=== PATIENT | female | born 1965 | race Caucasian/White ===

== ENCOUNTER 2019-12-10 18:32 | Emergency (ER) | payer OTHER ==
--- OUTSIDE RECORDS SUMMARY | 2019-12-10 18:36 | XMS REPORT ---
:1965 [facility] Address [address] [place] [address] Care Team Providers Name Role Phone DR DEA MALLOY Unavailable Unavailable SAM, DR GARCIA Unavailable Unavailable DR TOMASA GRANT Unavailable Unavailable ERIC, DR RIVERA Unavailable Unavailable POTEPKRISTINV, DR NIKO Navarro Unavailable Unavailable BROOKE SANCHEZ Unavailable Unavailable MCCLELLAND, DR MOUNIKA Brennan Unavailable Unavailable ZIWORITIN, DR BARBER Unavailable Unavailable Problems This patient has no known problems. Allergies, Adverse Reactions, Alerts This patient has no known allergies or adverse reactions. Medications This patient has no known medications. Encounters Start End Encounter Admission Attending Care Care Encounter Date/Time Date/Time Type Type Clinicians Facility Department ID 2019-10-18 2019-10-18 Outpatient E DE[facility]ALL[facility] [id number] 21:14:00 23:25:00 2019-08-22 2019-08-22 Outpatient RADHA MCLEOD [facility] [id number] 10:14:00 23:59:00 2019-07-08 2019-07-08 Outpatient E SHEIKH [facility] [id number] 08:48:00 11:10:00 WASIM 2019-04-09 2019-04-09 Outpatient E NICOLE REYES [facility] [id number] 19:17:00 20:00:00 2019-04-08 2019-04-08 Outpatient E SHEIKH [facility] [id number] 16:44:00 17:30:00 WASIM 2018-12-17 2018-12-17 Outpatient E OMAR [facility] [id number] 00:46:00 02:20:00 NIKO 2018-11-16 2018-11-16 Outpatient E DEA MALLOY [facility] [id number] 07:30:00 10:00:00 2018-06-25 2018-06-25 Outpatient E DEA MALLOY [facility] [id number] 06:57:00 08:55:00 2018-06-20 2018-06-20 Emergency E [facility] [id number] 09:14:00 09:14:00 2018-06-14 2018-06-14 Outpatient E DANIEL [facility] [id number] 08:57:00 09:47:00 BROOKE 2018-04-18 2018-04-18 Outpatient E MOUNIKA MCCLELLAND [facility] [id number] 20:15:00 22:50:00 2018-04-18 2018-04-18 Outpatient E MOUNIKA MCCLELLAND [facility] [id number] 20:15:00 22:50:00 2014-10-19 2014-10-19 Outpatient C NATY [facility] [id number] 15:15:00 15:15:00 ELISABETH Results Test Description Test Time Test Comments Text Results Atomic Results Result Comments URINALYSIS W/O MICROSCOPICOW 2019-10-18 23:04:00 Test Item Value Reference Range Comments COLOR (test code=COLU) PALE YELLOW YELLOW CLARITY (test code=CLA) SLT HAZY CLEAR GLUCOSE UR (test code=UA GLUCOSE) 2+ NEGATIVE BILI UR (test code=BILE) Negative NEGATIVE KETONES UR (test code=SUHAIL) Negative NEGATIVE SP GRAVITY (test code=SPGR) 1.015 1.005-1.030 PH UR (test code=PH) 5.0 4.5-8.0 PROTEIN UR (test code=PU) Negative NEGATIVE NITRITE UR (test code=NITRITE) Negative NEGATIVE UROBIL UR (test code=GUROQ) 0.2 E.U./dL UROBIL UR (test code=GUROQC) UROBILINOGEN REFERENCE RANGE 0.2 - 1.0 EU/dL BLOOD UR (test code=UA BLOOD) Trace-lysed NEGATIVE LEUK ES UR (test code=LEUK) Negative NEGATIVE CT HEAD W/O CONTRAST *OW*2019-10-18 22:39:22CT SCAN OF THE HEAD WITHOUT CONTRASTDictation Location: [id number] HISTORY: SeizureCOMPARISON: TECHNIQUE: Helical CT was performed from the skull base to the vertex withoutIV contrast using 5mm slice thicknesses. Exam was performed within 24 hours ofthe patient's arrival to the facility. The lack of IV contrast limitsevaluation for inflammation or mass. 2-D coronal and sagittal images werereconstructed. This exam was performed according to our departmental dose -optimizationprogram,which includes automatic exposure control, adjustment of mA and/or kVaccording to patient size and/or use of iterative reconstruction technique.DLP: 1046 mGY*cmComparison study 12/17/18FINDINGS:There is a 1.5 cm mucous retention cyst in the right maxillary sinus. Remainderthe visualized sinuses areclear. There is no evidence of skull fracture. Thevisualized bony structures are normal. There is noevidence of epidural,subdural, or intraparenchymal hematoma. There is no evidence of mass,mass effect, fluid collection,hemorrhage, or evolving infarction. IMPRESSION:Normal CT of the head without contrast.TROPONIN I OW2019-10-18 21:45:00 Test Item Value Reference Range Comments TROPONIN I (test code=A84) <0.050 ng/mL 0.000-0.050 MetyLyte 8 Panel *OW* [id number] 21:39:00 Test Item Value Reference Range Comments GLUCOSE (test code=GGUL) 375 mg/dL 73-118 BUN (test code=GBUN) 13 mg/dL 7-22 CREATININE (test code=GCRE) 0.6 mg/dL 0.6-1.2 CK TOTAL (test code=GCK) 78 U/L 30-190 SODIUM (test code=GNA+) 143 mmol/L 128-145 POTASSIUM (test code=GK+) 4.1 mmol/L 3.6-5.1 CHLORIDE (test code=GCL-) 107 mmol/L 98-108 TCO2 (test code=GTC02) 27 mmol/L 18-33 GLUCOMETER GLUCOSE- LAB USE [id number] 21:33:00 Test Item Value Reference Range Comments GLUCOMETER (test code=GMG) 384 mg/dL 70-100 Meter ID: [id number]: [id number] DID[address] FRANKLIN CBC (INCLUDES AUTOMATED DIFFERENTIAL) *2019-10-18 21:31:00 Test Item Value Reference Range Comments WBC (test code=WBC) 8.7 10\S\3/uL 4.5-11.0 RBC (test code=RBC) 5.62 10\S\6/uL 4.20-5.60 HGB (test code=HBG) 14.2 g/dL 12.0-15.5 HCT (test code=HCT) 46.1 % 35.0-44.0 MCV (test code=MCV) 82.1 fL 81.0-99.0 MCH (test code=MCH) 25.3 pg 27.0-31.0 MCHC (test code=MCHC) 30.8 g/dL 32.0-36.0 RDW (test code=RDW) 15.3 % 11.5-14.5 PLT (test code=PLT) 316 10\S\3/uL 130-400 MPV (test code=OMPV) 7.7 fL 6.2-10.2 NEUTROP # (test code=NE#) 5.0 10\S\3/uL 1.6-8.0 LYMPH # (test code=LY#) 3.2 10\S\3/uL 1.1-3.5 MID # (test code=GMID#) 0.5 10\S\3/uL 0.0-1.1 GRA % (test code=GRA%) 57.2 % 35.0-73.0 LYMPH % (test code=GLY%) 36.5 % 20.0-55.0 MID % (test code=GMID%) 6.3 % 0.0-10.0 XR SPINE THORACIC W/SWIMMERS 3VW *OW*2019-08-22 11:03:55Thoracic spine, 3 viewsLocation Code: [id number] history: Pain with scoliosisComments: AP, lateral , and swimmer lateral views of the thoracic spine wereobtained. There is no acute fracture or malalignment. Mild diffuse spondylosiswith 4.9 degrees of dextroscoliosis centering at T8 with accentuation of thethoracic kyphosis. The paraspinal soft tissues are unremarkable.Impression: No acute abnormality. Mild spondylosis with mild dextroscoliosisand accentuation of the thoracic kyphosis.TROPONIN I i-STAT OW2019-07-08 10:41:00 Test Item Value Reference Range Comments TROPONIN I (test code=A84) 0.000 ng/mL 0.000-0.045 CHEM8+ i-STAT OW2019-07-08 10:31:00 Test Item Value Reference Range Comments SODIUM (test code=DEMARIO) 136 mmol/L 138-146 POTASSIUM (test code=KI) 4.1 mmol/L 3.5-4.9 CHLORIDE (test code=CLI) 101 mmol/L 98-109 CA IONIZED (test code=ICAI) 1.31 mmol/L 1.12-1.32 GLUCOSE (test code=GLUI) 297 mg/dL 75-100 TCO2 (test code=TCO2) 27 mmol/L 24-29 BUN (test code=BUN1) 16 mg/dL 8-26 CREATININE (test code=CREAI) 0.5 mg/dL 0.6-1.3 ANION GAP (test code=GANG) 13.0 mmol/L HGB (test code=MHB) 14.3 g/dL 12.0-17.0 HCT (test code=MHCT) 42.0 % 38.0-51.0 CBC (INCLUDES AUTOMATED DIFFERENTIAL) *2019-07-08 10:22:00 Test Item Value Reference Range Comments WBC (test code=WBC) 9.6 10\S\3/uL 4.5-11.0 RBC (test code=RBC) 5.05 10\S\6/uL 4.20-5.60 HGB (test code=HBG) 13.3 g/dL 12.0-15.5 HCT (test code=HCT) 41.1 % 35.0-44.0 MCV (test code=MCV) 81.4 fL 81.0-99.0 MCH (test code=MCH) 26.3 pg 27.0-31.0 MCHC (test code=MCHC) 32.4 g/dL 32.0-36.0 RDW (test code=RDW) 15.2 % 11.5-14.5 PLT (test code=PLT) 255 10\S\3/uL 130-400 MPV (test code=OMPV) 7.6 fL 6.2-10.2 NEUTROP # (test code=NE#) 5.7 10\S\3/uL 1.6-8.0 LYMPH # (test code=LY#) 3.1 10\S\3/uL 1.1-3.5 MID # (test code=GMID#) 0.9 10\S\3/uL 0.0-1.1 GRA % (test code=GRA%) 58.9 % 35.0-73.0 LYMPH % (test code=GLY%) 32.1 % 20.0-55.0 MID % (test code=GMID%) 9.0 % 0.0-10.0 URINALYSIS W/O MICROSCOPICOW2019-07-08 10:09:00 Test Item Value Reference Range Comments COLOR (test code=COLU) PALE YELLOW YELLOW CLARITY (test code=CLA) Clear CLEAR GLUCOSE UR (test code=UA 3+ NEGATIVE GLUCOSE) BILI UR (test code=BILE) Negative NEGATIVE KETONES UR (test code=SUHAIL) Negative NEGATIVE SP GRAVITY (test code=SPGR) 1.020 1.005-1.030 PH UR (test code=PH) 5.5 4.5-8.0 PROTEIN UR (test code=PU) 1+ NEGATIVE NITRITE UR (test Negative NEGATIVE code=NITRITE) UROBIL UR (test code=GUROQ) 0.2 E.U./dL UROBIL UR (test code=GUROQC) UROBILINOGEN REFERENCE RANGE 0.2 - 1.0 EU/dL BLOOD UR (test code=UA Negative NEGATIVE BLOOD) LEUK ES UR (test code=LEUK) Negative NEGATIVE PROTHROMBIN TIME i-STAT OW2018-12-17 02:05:00 Test Item Value Reference Range Comments PT (test code=PT1) 11.9 s 10.0-13.0 INR (test code=INR) 1.0 INRH (test code=INRH) SUGGESTED THERAPEUTIC RANGE FOR INR: 2.5 - 3.5 For Patients with Prosthetic Valves or Patients with recurrent Thromboembolic Events 2.0 - 3.0 For Most Other Applications LACTIC ACID OW2018-12-17 02:04:00 Test Item Value Reference Range Comments LACTATE (test code=ETHAN) 1.6 mmol/L 0.9-1.7 DRUGS OF ABUSE*OW*2018-12-17 01:49:00 Test Item Value Reference Range Comments DRUG SCRN (test code=HDOA) URINE DRUG SCREEN This is an unconfirmed screening result and should not be used for non-medical purposes PHENCYCLID (test code=GPCP) Negative NEGATIVE BENZODIAZE (test code=GBZO) Positive NEGATIVE COCAINE (test code=GCOC) Negative NEGATIVE AMPHETAMIN (test code=GAMP) Negative NEGATIVE THC (test code=GTHC) Negative NEGATIVE OPIATES (test code=SARAY) Negative NEGATIVE BARBITURAT (test code=GBAR) Negative NEGATIVE TCA (test code=GTCA) Negative NEGATIVE DOAH (test code=DOAH) URINE DRUG SCREEN CUT OFF VALUES Amphetamines 1000 ng/mL Barbituates 300 ng/mL Benzodiazepines 300 ng/mL Cocaine 300 ng/mL Opiates 300 ng/mL Phencyclidine 25 ng/mL THC 50 ng/mL Tricyclic Antidepressants 1000 ng/mL URINALYSIS W/O MICROSCOPICOW2018-12-17 01:40:00 Test Item Value Reference Range Comments COLOR (test code=COLU) Yellow YELLOW CLARITY (test code=CLA) Clear CLEAR GLUCOSE UR (test code=UA 3+ NEGATIVE GLUCOSE) BILI UR (test code=BILE) Negative NEGATIVE KETONES UR (test code=SUHAIL) Negative NEGATIVE SP GRAVITY (test code=SPGR) 1.015 1.005-1.030 PH UR (test code=PH) 6.0 4.5-8.0 PROTEIN UR (test code=PU) 1+ NEGATIVE NITRITE UR (test Negative NEGATIVE code=NITRITE) UROBIL UR (test code=GUROQ) 0.2 E.U./dL UROBIL UR (test code=GUROQC) UROBILINOGEN REFERENCE RANGE 0.2 - 1.0 EU/dL BLOOD UR (test code=UA Negative NEGATIVE BLOOD) LEUK ES UR (test code=LEUK) Negative NEGATIVE URINE OW2018-12-17 01:40:00 Test Item Value Reference Range Comments PREG UR (test code=PGU) Negative NEGATIVE BRAIN NATRIURETIC PROTEIN OW2018-12-17 01:39:00 Test Item Value Reference Range Comments BNP (test code=OBNP) <15 pg/mL 0-50 CT HEAD W/O CONTRAST *OW*2018-12-17 01:21:06AFTER HOURS SERVICE ON: 12/17/2018 1: 19 AMCT Scan of the Brain Without ContrastLocation Code N76Slfmaid: [id number]: Epilepsy, not refractoryTechnique: Scans were performed on a helical scanner pre IV contrast only. Thestudy is limited secondary to lack of intravenous contrast, particularly forevaluation of masses. One or more of the following dose reduction techniques were used: Automatedexposure control, adjustment of the mA and/or kV according to patient size,and/or utilization of iterative reconstruction technique.Findings: There is no hydrocephalus. Basal cisterns are patent. There is no intracranialhyperdense hemorrhage. There is no midline shift or mass effect. No effacementof the do-whitematter junction to indicate acute infarction. There is noskull fracture.Impression:No acute intracranial CT findings.TROPONIN I i-STAT OW2018-12-17 01:16:00 Test Item Value Reference Range Comments TROPONIN I (test code=A84) 0.000 ng/mL 0.000-0.045 CHEM8+ i-STAT OW2018-12-17 01:05:00 Test Item Value Reference Range Comments SODIUM (test code=DEMARIO) 137 mmol/L 138-146 POTASSIUM (test code=KI) 4.1 mmol/L 3.5-4.9 CHLORIDE (test code=CLI) 101 mmol/L 98-109 CA IONIZED (test code=ICAI) 1.29 mmol/L 1.12-1.32 GLUCOSE (test code=GLUI) 365 mg/dL 75-100 TCO2 (test code=TCO2) 26 mmol/L 24-29 BUN (test code=BUN1) 18 mg/dL 8-26 CREATININE (test code=CREAI) 0.7 mg/dL 0.6-1.3 ANION GAP (test code=GANG) 15.0 mmol/L HGB (test code=MHB) 12.6 g/dL 12.0-17.0 HCT (test code=MHCT) 37.0 % 38.0-51.0 CBC (INCLUDES AUTOMATED DIFFERENTIAL) *2018-12-17 01:04:00 Test Item Value Reference Range Comments WBC (test code=WBC) 8.5 10\S\3/uL 4.5-11.0 RBC (test code=RBC) 4.62 10\S\6/uL 4.20-5.60 HGB (test code=HBG) 13.0 g/dL 12.0-15.5 HCT (test code=HCT) 37.1 % 35.0-44.0 MCV (test code=MCV) 80.2 fL 81.0-99.0 MCH (test code=MCH) 28.1 pg 27.0-31.0 MCHC (test code=MCHC) 35.0 g/dL 32.0-36.0 RDW (test code=RDW) 15.5 % 11.5-14.5 PLT (test code=PLT) 299 10\S\3/uL 130-400 MPV (test code=OMPV) 7.7 fL 6.2-10.2 NEUTROP # (test code=NE#) 4.9 10\S\3/uL 1.6-8.0 LYMPH # (test code=LY#) 2.9 10\S\3/uL 1.1-3.5 MID # (test code=GMID#) 0.6 10\S\3/uL 0.0-1.1 GRA % (test code=GRA%) 58.2 % 35.0-73.0 LYMPH % (test code=GLY%) 34.5 % 20.0-55.0 MID % (test code=GMID%) 7.3 % 0.0-10.0 GLUCOMETER GLUCOSE- LAB USE [id number] 09:29:00 Test Item Value Reference Range Comments GLUCOMETER (test code=GMG) 319 mg/dL 70-100 Meter ID: [id number]: [id number] ABDOMEN AND PELVIS WITH CONTRAST *OW*2018-11-16 08:54:22CT abdomen and pelvis with contrastLocation Code: [id number] HISTORY: [id number]: Abdominal painCOMPARISON: NoneTechnique: Helical CT of the abdomen and pelvis was performed followingintravenous contrast. Thin section axial, sagittal and coronal images wereobtained. One or more of the following dose reduction techniques were used:Automated exposure control, adjustment of the mA and or KV according to patientsize, and/or utilization of iterative reconstruction technique. DLP: 1799.15mGy-cm.FINDINGS:Thelung bases are clear. The liver is enlarged at 22.8 cm with hepatic steatosis. The gallbladder issurgically removed. The adrenal glands, kidneys, pancreas, and spleen areunremarkable.The unopacified loops of bowel demonstrate no focal thickening or dilatation.The appendix is visualized and is normal.There is no free peritoneal air orfluid. The abdominal aorta is normal in caliber and contour. There is noretroperitoneal mass or fluid collection. The urinary bladder is unremarkable.There is no pelvic mass or fluid collection. No ascites.The bones , skin, and surrounding soft tissues are unremarkable.IMPRESSION: Hepatomegaly with hepatic steatosis and previous cholecystectomy. No ascites.URINALYSIS W/O MICROSCOPICOW2018-11-16 08:24:00 Test Item Value Reference Range Comments COLOR (test code=COLU) Yellow YELLOW CLARITY (test code=CLA) Clear CLEAR GLUCOSE UR (test code=UA 2+ NEGATIVE GLUCOSE) BILI UR (test code=BILE) Negative NEGATIVE KETONES UR (test code=SUHAIL) Negative NEGATIVE SP GRAVITY (test code=SPGR) 1.020 1.005-1.030 PH UR (test code=PH) 5.5 4.5-8.0 PROTEIN UR (test code=PU) 2+ NEGATIVE NITRITE UR (test Negative NEGATIVE code=NITRITE) UROBIL UR (test code=GUROQ) 0.2 E.U./dL UROBIL UR (test code=GUROQC) UROBILINOGEN REFERENCE RANGE 0.2 - 1.0 EU/dL BLOOD UR (test code=UA Negative NEGATIVE BLOOD) LEUK ES UR (test code=LEUK) Negative NEGATIVE TROPONIN I i-STAT OW2018-11-16 08:20:00 Test Item Value Reference Range Comments TROPONIN I (test code=A84) 0.010 ng/mL 0.000-0.045 CHEM8+ i-STAT OW2018-11-16 08:06:00 Test Item Value Reference Range Comments SODIUM (test code=DEMARIO) 134 mmol/L 138-146 POTASSIUM (test code=KI) 4.6 mmol/L 3.5-4.9 CHLORIDE (test code=CLI) 99 mmol/L 98-109 CA IONIZED (test code=ICAI) 1.36 mmol/L 1.12-1.32 GLUCOSE (test code=GLUI) 373 mg/dL 75-100 TCO2 (test code=TCO2) 26 mmol/L 24-29 BUN (test code=BUN1) 22 mg/dL 8-26 CREATININE (test code=CREAI) 0.6 mg/dL 0.6-1.3 ANION GAP (test code=GANG) 14.0 mmol/L HGB (test code=MHB) 14.6 g/dL 12.0-17.0 HCT (test code=MHCT) 43.0 % 38.0-51.0 CBC (INCLUDES AUTOMATED DIFFERENTIAL) *2018-11-16 08:05:00 Test Item Value Reference Range Comments WBC (test code=WBC) 8.7 10\S\3/uL 4.5-11.0 RBC (test code=RBC) 4.98 10\S\6/uL 4.20-5.60 HGB (test code=HBG) 13.2 g/dL 12.0-15.5 HCT (test code=HCT) 39.3 % 35.0-44.0 MCV (test code=MCV) 79.0 fL 81.0-99.0 MCH (test code=MCH) 26.5 pg 27.0-31.0 MCHC (test code=MCHC) 33.6 g/dL 32.0-36.0 RDW (test code=RDW) 16.3 % 11.5-14.5 PLT (test code=PLT) 302 10\S\3/uL 130-400 MPV (test code=OMPV) 8.0 fL 6.2-10.2 NEUTROP # (test code=NE#) 5.8 10\S\3/uL 1.6-8.0 LYMPH # (test code=LY#) 2.3 10\S\3/uL 1.1-3.5 MID # (test code=GMID#) 0.6 10\S\3/uL 0.0-1.1 GRA % (test code=GRA%) 66.2 % 35.0-73.0 LYMPH % (test code=GLY%) 26.5 % 20.0-55.0 MID % (test code=GMID%) 7.3 % 0.0-10.0 XR CHEST 2 VIEW *OW*2018-06-25 07:54:50Exam: Chest 2 viewsLocation: D4.History: R50.9: FEVER, UNSPECIFIEDComparison: NoneFindings: Peribronchial cuffing is seen bilaterally along with bilateral perihilarstreaky densities related to bronchitis and/or viral pneumonitis. The pulmonaryvasculature is normal. The heart size is mildly enlarged. Atherosclerosisinvolves the aorta. The mediastinal silhouette is unremarkable. The bony thoraxis intact with degenerative changes noted.Impression:Bronchitis and/or viral pneumonitis.GLUCOMETER GLUCOSE- LAB USE [id number] 22:46:00 Test Item Value Reference Range Comments GLUCOMETER (test code=GMG) 344 mg/dL 70-100 Meter ID: [id number]: [id number] ABDOMEN AND PELVIS WITH CONTRAST *OW*2018-04-18 21:51:32CT OF THE ABDOMEN AND PELVIS WITH CONTRASTLocation code:[id number] HISTORY:R10.84: GENERALIZED ABDOMINAL PAIN COMPARISON: None available TECHNIQUE:Multiple transaxial images of the abdomen and pelvis were obtained after 100 mL of Omnipaque 300 contrast . Coronal and sagittal reformattedimages were obtained. One or more of the following dose reduction techniqueswere used: Automatic exposure control, adjustment of the mA and/or kV accordingto patient size, and/or utilization of iterative reconstruction technique.FINDINGS: AbdomenBeam hardening artifact produced by patient's contact with CT gantry limitedsensitivity interpretation. Mild atelectatic changes are noted in the lung bases.There is mild fatty infiltration of the liver. There is surgical absence of thegallbladder. Spleen, pancreas, adrenal glands and kidneys are within normallimits. There is no hydronephrosis or hydroureter.Normal caliber appendix is identified in the right lower quadrant. Small andlarge bowel loops are normal in caliber. There is no abnormal mural thickeningor obstruction. No mesenteric or retroperitoneal lymphadenopathy is found. There is no freeintraperitoneal air or fluid.Visualized abdominal aorta is within normal limits.FINDINGS: PelvisThere is a cyst in the right adnexa measuring 2.5 cm. Left adnexa is withinnormal limits. There is surgical absence of the uterus. There is no free pelvicfluid.Urinary bladder is collapsed. There is no pelvic or inguinal adenopathy.Visualized skeletal structures are within normal limits.IMPRESSION: 1. Fatty infiltration of liver.2. Surgical absence of the gallbladder and uterus.3. Follicle/cyst in the right adnexa measuring 2.5 cm. No free pelvic fluid.CHEM8+ i-STAT OW2018-04-18 21:03:00 Test Item Value Reference Range Comments SODIUM (test code=DEMARIO) 136 mmol/L 138-146 POTASSIUM (test code=KI) 4.0 mmol/L 3.5-4.9 CHLORIDE (test code=CLI) 100 mmol/L 98-109 CA IONIZED (test code=ICAI) 1.31 mmol/L 1.12-1.32 GLUCOSE (test code=GLUI) 328 mg/dL 75-100 TCO2 (test code=TCO2) 27 mmol/L 24-29 BUN (test code=BUN1) 13 mg/dL 8-26 CREATININE (test code=CREAI) 0.5 mg/dL 0.6-1.3 ANION GAP (test code=GANG) 14.0 mmol/L CBC (INCLUDES AUTOMATED DIFFERENTIAL) *2018-04-18 20:59:00 Test Item Value Reference Range Comments WBC (test code=WBC) 8.7 10\S\3/uL 4.5-11.0 RBC (test code=RBC) 5.50 10\S\6/uL 4.20-5.60 HGB (test code=HBG) 14.5 g/dL 12.0-15.5 HCT (test code=HCT) 44.3 % 35.0-44.0 MCV (test code=MCV) 80.6 fL 81.0-99.0 MCH (test code=MCH) 26.4 pg 27.0-31.0 MCHC (test code=MCHC) 32.7 g/dL 32.0-36.0 RDW (test code=RDW) 14.3 % 11.5-14.5 PLT (test code=PLT) 280 10\S\3/uL 130-400 MPV (test code=MPV) 7.2 fL 9.4-12.4 NEUTROP # (test code=NE#) 6.1 10\S\3/uL 1.6-8.0 LYMPH # (test code=LY#) 2.0 10\S\3/uL 1.1-3.5 MID # (test code=GMID#) 0.6 10\S\3/uL 0.0-1.1 GRA % (test code=GRA%) 69.8 % 35.0-73.0 LYMPH % (test code=GLY%) 23.0 % 20.0-55.0 MID % (test code=GMID%) 7.2 % 0.0-10.0 URINALYSIS W/O MICROSCOPICOW2018-04-18 20:49:00 Test Item Value Reference Range Comments COLOR (test code=COLU) Yellow YELLOW CLARITY (test code=CLA) Clear CLEAR GLUCOSE UR (test code=UA 2+ NEGATIVE GLUCOSE) BILI UR (test code=BILE) Negative NEGATIVE KETONES UR (test code=SUHAIL) Negative NEGATIVE SP GRAVITY (test code=SPGR) >=1.030 1.005-1.030 PH UR (test code=PH) 5.5 4.5-8.0 PROTEIN UR (test code=PU) 3+ NEGATIVE NITRITE UR (test Negative NEGATIVE code=NITRITE) UROBIL UR (test code=GUROQ) 0.2 E.U./dL UROBIL UR (test code=GUROQC) UROBILINOGEN REFERENCE RANGE 0.2 - 1.0 EU/dL BLOOD UR (test code=UA Trace-lysed NEGATIVE BLOOD) LEUK ES UR (test code=LEUK) Negative NEGATIVE
[2019-12-10] MEDS ORDERED: INSULIN -REGULAR HUMAN 50 UNIT/0.5 ML ML ONE ×2 (19:02→21:12)
[2019-12-10] MEDS ORDERED: NA CHLORIDE 0.9% 1,000 ML ONE (19:03)
--- NOTE | 2019-12-10 19:21 | RAD REPORT ---
EXAM DESCRIPTION: Taran Single View12/10/2019 7:04 pm CLINICAL HISTORY: Seizure COMPARISON: none FINDINGS: Lungs appear grossly clear . Haziness overlying the left base probably overlying soft tiss ue The lungs appear clear of acute infiltrate. The heart is normal size IMPRESSION: No acute abnormalities displayed If the patient continues to have symptoms to suggest chest pathology then PA and lateral chest series would be recommended
--- NOTE | 2019-12-10 19:39 | RAD REPORT ---
EXAM DESCRIPTION: CT - Head Brain Wo Cont - 12/10/2019 7:20 pm CLINICAL HISTORY: Seizure COMPARISON: None TECHNIQUE: Computed axial tomography of the head was obtained. IV contrast was not requested. All CT scans are performed using dose optimization technique as appropriate and may include automated exposure control or mA/KV adjustment according to patient size. FINDINGS: An intracranial bleed is not seen . The ventricles are normal in caliber. No extra-axial fluid collection is noted. Coarse calcifications within the distal left vertebral artery Fluid within the sinuses/ mastoids is not seen. IMPRESSION: No acute intracranial abnormality is seen. If patient's symptoms persist MRI of the bra in would be recommended.
[2019-12-10 19:42] LABS: ALT/SGPT 39 U/L (12-78); AST/SGOT 21 U/L (15-37); Albumin 3.1 g/dL (3.4-5.0); Alkaline Phosphatase 108 U/L (45-117); BUN Blood Urea Nitrogen 15 mg/dL (7-18); Bicarbonate 24 mmol/L (21-32); Bilirubin Direct < 0.1 mg/dL (0-0.2); Bilirubin Total 0.2 mg/dL (0.2-1.0); Glucose Level 394 mg/dL (74-106); Magnesium 1.5 mg/dL (1.8-2.4); NT PRO-BNP 67 pg/mL (<125); Potassium 4.3 mmol/L (3.5-5.1); Protein, Total 6.9 g/dL (6.4-8.2); Sodium Level 139 mmol/L (136-145); Troponin (Emerg Dept Use Only) < 0.02 ng/mL (0.0-0.045)
[2019-12-10 19:54] LABS: Barbiturates NEGATIVE (NEGATIVE); Benzodiazepines NEGATIVE (NEGATIVE); Cocaine NEGATIVE (NEGATIVE); METHAMPHETAM NEGATIVE (NEGATIVE); Methadone NEGATIVE (NEGATIVE); Opiates NEGATIVE (NEGATIVE); Phencyclidine NEGATIVE (NEGATIVE); THC Cannibis NEGATIVE (NEGATIVE)
[2019-12-10 20:12] LABS: Absolute Lymphocytes (CBC) 2.7 K/uL (0.7-4.9); Basophils % 1.1 % (0-1.3); Lymphocytes % 32.1 % (15.3-44.8); MPV 7.6 fL (7.6-11.3); RBC Red Blood Cell Count 4.85 M/uL (3.86-4.86)
[2019-12-10] MEDS ORDERED: Magnesium Sulfate 2gm IVPB 2 G/50 ML BAG IV ONE (20:40)
[2019-12-10 20:44] LABS: Protime INR 0.89
--- NOTE | 2019-12-10 21:27 | ER ---
Nurse's Notes [facility] Name: Beti Bernard Age: 54 yrs Sex: Female : 1965 Arrival Date: 12/10/2019 Time: 18:37 Bed 3 Private MD: Diagnosis: Epilepsy and recurrent seizures;Hypomagnesemia;Diabetes mellitus due to underlying condition with hyperglycemia Presentation: 12/10 18:38 Presenting complaint: EMS states: SZ-LIKE ACTIVITY 2/2 STRESS. Transition of care: bp patient was not received from another setting of care. Onset of symptoms is unknown. Risk Assessment: Do you want to hurt yourself or someone else? Patient reports no desire to harm self or others. Initial Sepsis Screen: Does the patient meet any 2 criteria? No. Patient's initial sepsis screen is negative. Does the patient have a suspected source of infection? No. Patient's initial sepsis screen is negative. Care prior to arrival: Medication(s) given: ATIVAN 1MG IVP IV initiated. 22 GA, in the left hand, Glucose check: 380. 18:38 Method Of Arrival: EMS: [facility] bp 18:38 Acuity: ÁNGEL 3 bp 18:44 Note PT SZ-LIKE ACTIVITY DID NOT RESULT IN FALL OR INCONTINENCE, NO POST-ICTAL PERIOD. bp Triage Assessment: 18:42 General: Appears in no apparent distress. comfortable, obese, Behavior is cooperative, bp appropriate for age, anxious. Pain: Denies pain. EENT: No deficits noted. Neuro: Level of Consciousness is awake, alert, obeys commands, Oriented to person, place, time, situation, Appropriate for age. Cardiovascular: No deficits noted. Respiratory: No deficits noted. GI: No signs and/or symptoms were reported involving the gastrointestinal system. : No signs and/or symptoms were reported regarding the genitourinary system. Derm: No deficits noted. Musculoskeletal: No deficits noted. 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 - Coronavirus screen:: The patient has NOT traveled to [place], [place], or [place] in the past 14 days. Proceed with normal triage process as indicated. The patient has NOT had contact with known/suspected case of Coronavirus? Proceed with normal triage procedures. - Social history:: Smoking status: Patient reports the use of cigarette tobacco products, unknown amount. - Ebola Screening: : No symptoms or risks identified at this time. Screenin:45 Abuse screen: Denies threats or abuse. Denies injuries from another. Nutritional bp screening: No deficits noted. Tuberculosis screening: No symptoms or risk factors identified. Fall Risk None identified. Assessment: 18:45 General: SEE TRIAGE NOTE. bp 19:16 General: Appears in no apparent distress. comfortable, Behavior is calm, cooperative, rr5 appropriate for age, send to CT scan. Pain: Denies pain. Neuro: Level of Consciousness is awake, alert, obeys commands, Oriented to person, place, time, situation, Appropriate for age Reports episode of seizure. Cardiovascular: Capillary refill < 3 seconds Patient's skin is warm and dry. Respiratory: Airway is patent Respiratory effort is even, unlabored, Respiratory pattern is regular, symmetrical. GI: Abdomen is round obese. : No signs and/or symptoms were reported regarding the genitourinary system. EENT: No signs and/or symptoms were reported regarding the EENT system. Derm: Skin is intact, is healthy with good turgor, Skin temperature is warm. Musculoskeletal: Circulation, motion, and sensation intact. Capillary refill < 3 seconds. 20:29 Reassessment: Patient appears in no apparent distress at this time. Patient is alert, rr5 oriented x 3, equal unlabored respirations, skin warm/dry/pink. awaiting for results, no complaints made. 21:45 Reassessment: Patient appears in no apparent distress at this time. Patient is alert, rr5 oriented x 3, equal unlabored respirations, skin warm/dry/pink. no seizure episode noted. discharge instruction given and explained without complaints made, verbalized understading. Patient denies pain at this time. Patient states feeling better. Patient states symptoms have improved. Vital Signs: 18:42 BP 140 / 82; Pulse 108; Resp 17; Temp 98; Pulse Ox 97% ; Weight 158.76 kg; bp 19:47 BP 156 / 80; Pulse 97; Resp 16; Pulse Ox 95% on R/A; ea 20:30 BP 148 / 87; Pulse 92; Resp 18; Pulse Ox 97% on R/A; ea 21:20 BP 148 / 87; Pulse 88; Resp 20; Pulse Ox 93% on R/A; ea 21:49 BP 133 / 75; Pulse 85; Resp 19; Temp 98.5; Pulse Ox 99% on R/A; rr5 [place] Coma Score: 18:42 Eye Response: spontaneous(4). Verbal Response: oriented(5). Motor Response: obeys bp commands(6). Total: 15. NIH Stroke Scale Scores: 18:46 NIHSS Score: 0 bp 19:25 NIHSS Score: 0 cp ED Course: 18:37 Patient arrived in ED. bp 18:39 Triage completed. bp 18:41 Miguel Angel Lopez PA is PHCP. cp 18:41 Lamonte Conteh MD is Attending Physician. cp 18:42 Arm band placed on. bp 18:45 Patient has correct armband on for positive identification. Bed in low position. Call bp light in reach. Side rails up X2. Seizure precautions initiated. 18:45 Maintain EMS IV. Dressing intact. Good blood return noted. Site clean \T\ dry. Gauge \T\ bp site: 22 G LEFT HAND. 18:45 Initial lab(s) drawn, by pr, sent to lab. jp3 18:53 Garfield Pate, RN is Primary Nurse. bp 19:09 XRAY Chest (1 view) In Process Unspecified. EDMS 19:20 CT completed. Patient tolerated procedure well. Patient moved back from CT. mw3 19:22 CT Head Brain wo Cont In Process Unspecified. EDMS 19:45 Sebastien Alexander MD is Attending Physician. cp 20:10 Initial lab(s) drawn, by culture media laboratory assistant, sent to lab. rr5 21:25 Yariel Chiu MD is Referral Physician. cp 21:49 No provider procedures requiring assistance completed. IV discontinued, intact, rr5 bleeding controlled, No redness/swelling at site. Pressure dressing applied. Administered Medications: 19:14 Drug: Insulin Regular Human 10 units {Co-Signature: luz (Nickie Ronquillo RN).} Route: IVP; rr5 Site: left hand; 20:15 Follow up: Response: No adverse reaction; Blood sugar is lowered rr5 19:15 Drug: NS 0.9% 1000 ml Route: IV; Rate: 1000 ml/hr; Site: left hand; rr5 21:50 Follow up: Response: No adverse reaction; IV Status: Completed infusion; IV Intake: rr5 1000ml 20:39 Drug: Magnesium Sulfate 2 grams Route: IVPB; Infused Over: 2 hrs; Site: left hand; rr5 21:30 Follow up: Response: No adverse reaction; IV Status: Completed infusion; IV Intake: [id number] 21:15 Drug: NovoLIN R 10 units {Co-Signature: luz (Nickie Ronquillo RN).} Route: Sub-Q; Site: rr5 left upper arm; 21:52 Follow up: Response: No adverse reaction rr5 Intake: 21:30 IV: 50ml; Total: 50ml. rr5 21:50 IV: 1000ml; Total: 1050ml. rr5 Outcome: 21:26 Discharge ordered by MD. cp 21:49 Discharged to home ambulatory, with family. rr5 21:49 Condition: stable 21:49 Discharge instructions given to patient, family, Instructed on discharge instructions, follow up and referral plans. medication usage, Demonstrated understanding of instructions, follow-up care, medications, Prescriptions given X 1. 21:59 Patient left the ED. rr5 NIH Stroke Scale - NIH Stroke Score Date: 12/10/2019 Time: 18:46 Total Score = 0 1a. Level of Consciousness (LOC) - 0(Alert) 1b. Level of Consciousness (LOC) (Year \T\ Age) - 0(Both) 1c. LOC Commands (Open \T\ Closes Eyes/Segment Block Layer) - 0(Both) 2. Best Gaze (Lateral Gaze Paresis) - 0(Normal) 3. Visual Field Loss - 0(No visual loss) 4. Facial Palsy - 0(Normal) 5a. Left Arm: Motor (10-second hold) - 0(No drift) 5b. Right Arm: Motor (10-second hold) - 0(No drift) 6a. Left Leg: Motor (5-second hold - always test supine) - 0(No drift) 6b. Right Leg: Motor (5-second hold - always test supine) - 0(No drift) 7. Limb Ataxia (finger/nose \T\ heel/styles - test with eyes open) - 0(Absent) 8. Sensory Loss (pinprick arms/legs/face) - 0(Normal) 9. Best Language: Aphasia (description/naming/reading) - 0(No aphasia) 10. Dysarthria (speech clarity - read or repeat words) - 0(Normal) 11. Extinction and Inattention (visual/tactile/auditory/spatial/personal) - 0(No abnormality) Initials: bp NIH Stroke Scale - NIH Stroke Score Date: 12/10/2019 Time: 19:25 Total Score = 0 1a. Level of Consciousness (LOC) - 0(Alert) 1b. Level of Consciousness (LOC) (Year \T\ Age) - 0(Both) 1c. LOC Commands (Open \T\ Closes Eyes/Segment Block Layer) - 0(Both) 2. Best Gaze (Lateral Gaze Paresis) - 0(Normal) 3. Visual Field Loss - 0(No visual loss) 4. Facial Palsy - 0(Normal) 5a. Left Arm: Motor (10-second hold) - 0(No drift) 5b. Right Arm: Motor (10-second hold) - 0(No drift) 6a. Left Leg: Motor (5-second hold - always test supine) - 0(No drift) 6b. Right Leg: Motor (5-second hold - always test supine) - 0(No drift) 7. Limb Ataxia (finger/nose \T\ heel/styles - test with eyes open) - 0(Absent) 8. Sensory Loss (pinprick arms/legs/face) - 0(Normal) 9. Best Language: Aphasia (description/naming/reading) - 0(No aphasia) 10. Dysarthria (speech clarity - read or repeat words) - 0(Normal) 11. Extinction and Inattention (visual/tactile/auditory/spatial/personal) - 0(No abnormality) Initials: cp Signatures: Dispatcher [employer] EDMS Miguel Angel Lopez PA PA cp Antunez, Elena, RN RN ea Peltier, Brian, RN RN bp Willis, Michelle mw3 Freddy Copeland jp3 Frankie Villegas RN RN rr5 Nickie Ronquillo RN, ea
--- NOTE | 2019-12-10 21:28 | EDPHYS ---
Physician Documentation [facility] Name: Beti Bernard Age: 54 yrs Sex: Female : 1965 Arrival Date: 12/10/2019 Time: 18:37 Bed 3 Private MD: ED Physician Sebastien Alexander HPI: 12/10 19:10 This 54 yrs old Female presents to ER via EMS with complaints of Probable cp Seizure. 19:10 The patient presents with a history of multiple seizures, that last an unknown period cp of time, the episode(s) was witnessed, by family, daughter, . 19:10 Character of seizure(s): Motor activity: legs shake, Incontinence: incontinent of cp bladder. Seizure onset: today. Seizure Hx: Cause: head injury, Last seizure: The patient's last seizure was approximately 2 month(s) ago, Seizure medications: none. Associated injury: The patient did not suffer any apparent associated injury. Current symptoms: Currently, the patient is not experiencing any symptoms, the patient feels back to baseline. 19:10 EMS care: Ativan, 1 mg(s). 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 - Coronavirus screen:: The patient has NOT traveled to [place], [place], or [place] in the past 14 days. Proceed with normal triage process as indicated. The patient has NOT had contact with known/suspected case of Coronavirus? Proceed with normal triage procedures. - Social history:: Smoking status: Patient reports the use of cigarette tobacco products, unknown amount. - Ebola Screening: : No symptoms or risks identified at this time. ROS: 19:15 Constitutional: Negative for body aches, chills, fever, poor PO intake. cp 19:15 Eyes: Negative for injury, pain, redness, and discharge. cp 19:15 ENT: Negative for drainage from ear(s), ear pain, sore throat, difficulty swallowing, difficulty handling secretions. 19:15 Cardiovascular: Negative for chest pain, palpitations. 19:15 Respiratory: Negative for cough, shortness of breath, wheezing. 19:15 Abdomen/GI: Negative for abdominal pain, vomiting, diarrhea, constipation. 19:15 Back: Negative for pain at rest, pain with movement. 19:15 : Negative for urinary symptoms. 19:15 Skin: Negative for rash. 19:15 Neuro: Negative for altered mental status, dizziness, headache, weakness. 19:15 All other systems are negative. Exam: 19:10 ECG was reviewed by the Attending Physician. cp 19:25 Constitutional: The patient appears in no acute distress, alert, awake, cp non-diaphoretic, non-toxic, well developed, well nourished, obese. 19:25 Head/Face: Normocephalic, atraumatic. cp 19:25 Eyes: Periorbital structures: appear normal, Pupils: equal, round, and reactive to light and accomodation, Extraocular movements: intact throughout, Conjunctiva: normal, no exudate, no injection, Sclera: no appreciated abnormality, Lids and lashes: appear normal, bilaterally. 19:25 ENT: External ear(s): are unremarkable, Ear canal(s): are normal, clear, TM's: bulging, is not appreciated, bilaterally, dullness, bilaterally, erythema, is not appreciated, bilaterally, Nose: is normal, Mouth: Lips: moist, Oral mucosa: pink and intact, moist, Posterior pharynx: is normal, airway is patent, no erythema, no exudate, Voice: is normal. 19:25 Neck: ROM/movement: is normal, is supple, without pain, no range of motions limitations, no nuchal rigidity. 19:25 Chest/axilla: Inspection: normal, Palpation: is normal, no crepitus, no tenderness. 19:25 Cardiovascular: Rate: tachycardic, Rhythm: regular, Edema: is not appreciated, JVD: is not appreciated. 19:25 Respiratory: the patient does not display signs of respiratory distress, Respirations: normal, no use of accessory muscles, no retractions, labored breathing, is not present, Breath sounds: are clear throughout, no decreased breath sounds, no stridor, no wheezing. 19:25 Abdomen/GI: Inspection: abdomen appears normal, Palpation: abdomen is soft and non-tender, in all quadrants. 19:25 Neuro: Orientation: to person, place \T\ time. Mentation: is normal, Cerebellar function: Romberg testing is negative, normal finger to nose testing, heel to styles testing is normal, Motor: moves all fours, strength is normal, Sensation: is normal. Vital Signs: 18:42 BP 140 / 82; Pulse 108; Resp 17; Temp 98; Pulse Ox 97% ; Weight 158.76 kg; bp 19:47 BP 156 / 80; Pulse 97; Resp 16; Pulse Ox 95% on R/A; ea 20:30 BP 148 / 87; Pulse 92; Resp 18; Pulse Ox 97% on R/A; ea 21:20 BP 148 / 87; Pulse 88; Resp 20; Pulse Ox 93% on R/A; ea 21:49 BP 133 / 75; Pulse 85; Resp 19; Temp 98.5; Pulse Ox 99% on R/A; rr5 NIH Stroke Scale Scores: 18:46 NIHSS Score: 0 bp 19:25 NIHSS Score: 0 cp [place] Coma Score: 18:42 Eye Response: spontaneous(4). Verbal Response: oriented(5). Motor Response: obeys bp commands(6). Total: 15. MDM: 18:50 Patient medically screened. cp 21:14 ED course: VSS. Patient sleeping in ED and seizure activity observed while in ED. Will cp discharge to home for continued monitoring and f/u with neurology. 21:25 Data reviewed: vital signs, nurses notes, lab test result(s), EKG, radiologic studies, cp CT scan, plain films, and as a result, I will discharge patient. 21:25 Differential diagnosis: cerebral vascular accident, cardiac arrhythmia, seizure, TIA. cp Test interpretation: by ED physician or midlevel provider: ECG. Counseling: I had a detailed discussion with the patient and/or guardian regarding: the historical points, exam findings, and any diagnostic results supporting the discharge/admit diagnosis, lab results, radiology results, the need for outpatient follow up, for definitive care, a neurologist, to return to the emergency department if symptoms worsen or persist or if there are any questions or concerns that arise at home. Response to treatment: the patient's symptoms have markedly improved after treatment, and as a result, I will discharge patient. 12/10 18:53 Order name: Basic Metabolic Panel; Complete Time: 20:02 cp 02/08 20:03 Interpretation: Normal except: GLUC 394; GFR 70. cp / 18:53 Order name: CBC with Diff; Complete Time: 21:12 cp /08 21:14 Interpretation: Normal except: RDW 15.3; EOSINOPHIL % 7.3; EOSA 0.6. cp / 18:53 Order name: LFT's; Complete Time: 20:02 cp / 20:32 Interpretation: Normal except: ALB 3.1; GLOB 3.8; A/G 0.8. cp / 18:53 Order name: Magnesium; Complete Time: 20:02 cp / 20:03 Interpretation: Abnormal: MG 1.5. cp 12/10 18:53 Order name: NT PRO-BNP; Complete Time: 20:02 cp 12/10 18:53 Order name: PT-INR; Complete Time: 21:12 cp 12/10 18:53 Order name: Troponin (emerg Dept Use Only); Complete Time: 20:02 cp / 20:33 Interpretation: Reviewed. cp / 18:53 Order name: XRAY Chest (1 view); Complete Time: 20:02 cp / 18:53 Order name: ETOH Level; Complete Time: 21:12 cp / 18:53 Order name: UDS; Complete Time: 20:02 cp / 18:53 Order name: Ptt, Activated; Complete Time: 21:12 cp / 19:14 Order name: Glucose, Ancillary Testing; Complete Time: 20:02 EDMS / 21:10 Order name: Glucose, Ancillary Testing; Complete Time: 21:12 EDMS / 18:53 Order name: EKG; Complete Time: 18:55 cp / 18:53 Order name: Cardiac monitoring; Complete Time: 18:54 cp / 18:53 Order name: EKG - Nurse/Tech; Complete Time: 19:14 cp / 18:53 Order name: IV Saline Lock; Complete Time: 18:54 cp 12/10 18:53 Order name: Labs collected and sent; Complete Time: 20:29 cp 02/08 18:53 Order name: O2 Per Protocol; Complete Time: 18:54 cp 02/08 18:53 Order name: O2 Sat Monitoring; Complete Time: 18:54 cp 02/08 18:53 Order name: CT Head Brain wo Cont; Complete Time: 20:02 cp 02/08 18:56 Order name: Urine Dipstick-Ancillary (obtain specimen); Complete Time: 19:43 cp 02/08 18:56 Order name: Urine Test (obtain specimen); Complete Time: 19:14 cp EC:10 Rate is 103 beats/min. Rhythm is regular. FL interval is normal. QRS interval is cp normal. QT interval is normal. Interpreted by me. Reviewed by me. Administered Medications: 19:14 Drug: Insulin Regular Human 10 units {Co-Signature: luz (Nickie Ronquillo RN).} Route: IVP; rr5 Site: left hand; 20:15 Follow up: Response: No adverse reaction; Blood sugar is lowered rr5 19:15 Drug: NS 0.9% 1000 ml Route: IV; Rate: 1000 ml/hr; Site: left hand; rr5 21:50 Follow up: Response: No adverse reaction; IV Status: Completed infusion; IV Intake: rr5 1000ml 20:39 Drug: Magnesium Sulfate 2 grams Route: IVPB; Infused Over: 2 hrs; Site: left hand; rr5 21:30 Follow up: Response: No adverse reaction; IV Status: Completed infusion; IV Intake: [id number] 21:15 Drug: NovoLIN R 10 units {Co-Signature: luz (Nickie Ronquillo RN).} Route: Sub-Q; Site: rr5 left upper arm; 21:52 Follow up: Response: No adverse reaction rr5 Disposition: 12/11 06:34 Co-signature as Attending Physician, Sebastien Alexander MD I agree with the assessment and tw4 plan of care. Disposition: 12/10/19 21:26 Discharged to Home. Impression: Epilepsy and recurrent seizures, Hypomagnesemia, Diabetes mellitus due to underlying condition with hyperglycemia. - Condition is Stable. - Discharge Instructions: Hypomagnesemia, Seizure, Adult, Blood Glucose Monitoring, Adult, Diabetes Mellitus and Food. - Prescriptions for Ativan 1 mg Oral Tablet - take 1 tablet by ORAL route every 8 hours As needed; 10 tablet. - Medication Reconciliation Form, Thank You Letter, Antibiotic Education, Prescription Opioid Use form. - Follow up: Yariel Chiu MD; When: 2 - 3 days; Reason: seizure. - Problem is an ongoing problem. - Symptoms have improved. NIH Stroke Scale - NIH Stroke Score Date: 12/10/2019 Time: 18:46 Total Score = 0 1a. Level of Consciousness (LOC) - 0(Alert) 1b. Level of Consciousness (LOC) (Year \T\ Age) - 0(Both) 1c. LOC Commands (Open \T\ Closes Eyes/Health Care Coordinator) - 0(Both) 2. Best Gaze (Lateral Gaze Paresis) - 0(Normal) 3. Visual Field Loss - 0(No visual loss) 4. Facial Palsy - 0(Normal) 5a. Left Arm: Motor (10-second hold) - 0(No drift) 5b. Right Arm: Motor (10-second hold) - 0(No drift) 6a. Left Leg: Motor (5-second hold - always test supine) - 0(No drift) 6b. Right Leg: Motor (5-second hold - always test supine) - 0(No drift) 7. Limb Ataxia (finger/nose \T\ heel/styles - test with eyes open) - 0(Absent) 8. Sensory Loss (pinprick arms/legs/face) - 0(Normal) 9. Best Language: Aphasia (description/naming/reading) - 0(No aphasia) 10. Dysarthria (speech clarity - read or repeat words) - 0(Normal) 11. Extinction and Inattention (visual/tactile/auditory/spatial/personal) - 0(No abnormality) Initials: bp NIH Stroke Scale - NIH Stroke Score Date: 12/10/2019 Time: 19:25 Total Score = 0 1a. Level of Consciousness (LOC) - 0(Alert) 1b. Level of Consciousness (LOC) (Year \T\ Age) - 0(Both) 1c. LOC Commands (Open \T\ Closes Eyes/Health Care Coordinator) - 0(Both) 2. Best Gaze (Lateral Gaze Paresis) - 0(Normal) 3. Visual Field Loss - 0(No visual loss) 4. Facial Palsy - 0(Normal) 5a. Left Arm: Motor (10-second hold) - 0(No drift) 5b. Right Arm: Motor (10-second hold) - 0(No drift) 6a. Left Leg: Motor (5-second hold - always test supine) - 0(No drift) 6b. Right Leg: Motor (5-second hold - always test supine) - 0(No drift) 7. Limb Ataxia (finger/nose \T\ heel/styles - test with eyes open) - 0(Absent) 8. Sensory Loss (pinprick arms/legs/face) - 0(Normal) 9. Best Language: Aphasia (description/naming/reading) - 0(No aphasia) 10. Dysarthria (speech clarity - read or repeat words) - 0(Normal) 11. Extinction and Inattention (visual/tactile/auditory/spatial/personal) - 0(No abnormality) Initials: cp Signatures: Dispatcher [employer] EDMS Miguel Angel Lopez PA PA cp Garfield Pate, RASHARD RN bp Sebastien Alexander MD MD tw4 Frankie Villegas RN RN rr5 Nickie Ronquillo RN, ea Corrections: (The following items were deleted from the chart) 12/10 21:13 21:14 Normal except: RDW 15.3; EOSINOPHIL % 7.3. cp cp 21:59 21:26 12/10/2019 21:26 Discharged to Home. Impression: Epilepsy and recurrent rr5 seizures; Hypomagnesemia; Diabetes mellitus due to underlying condition with hyperglycemia. Condition is Stable. Forms are Medication Reconciliation Form, Thank You Letter, Antibiotic Education, Prescription Opioid Use. Follow up: Yariel Chiu; When: 2 - 3 days; Reason: seizure. Problem is an ongoing problem. Symptoms have improved. cp
[2019-12-10 22:23] VITALS: BP 133/75; TEMP 98.5; O2SAT 99
--- NOTE | 2019-12-11 06:25 | EKG ---
Test Date: 2019-12-10 Test Time: 19:09:24 Teletypesetter Monitor: ROSA MEASUREMENT RESULTS: Intervals: Rate: 103 CA: 158 QRSD: 74 QT: 342 QTc: 448 [place]: P: 52 CA: 158 QRS: -5 T: 55 INTERPRETIVE STATEMENTS: Sinus tachycardia Otherwise normal ECG No previous ECG available for comparison Electronically Signed On 12-11-19 06:24:41 RETAIL MANAGER by Dorian Kim
== END 2019-12-10 21:59 | disposition home or self-care (01) ==
LOC: ER 18:32
DX: G40.802 Other epilepsy, not intractable, without status epilepticus (principal); E83.42 Hypomagnesemia; E11.65 Type 2 diabetes mellitus with hyperglycemia; I10 Essential (primary) hypertension; E78.00 Pure hypercholesterolemia, unspecified; F17.210 Nicotine dependence, cigarettes, uncomplicated; Z79.4 Long term (current) use of insulin
CPT/HCPCS: 96365; 96361; 93005; 85025; 80048; 36415; 80320; 83735; 85610; 82947 ×2; 80076; 80307 ×8; 85730; 84484; 83880; 70450; 71045; 96375; 96372; 99284; J3475; J7030